=== PATIENT | female | born 1990 | race Caucasian/White ===

== ENCOUNTER → 2023-04-05 15:43 | Outpatient (REF) | payer BC, SELFPAY | LOC: PNTC 15:43 | PROVIDERS: ATTENDING PHYSICIAN Obstetrics & Gynecology | DX: Z34.82 Encounter for supervision of other normal pregnancy, second trimester (principal) | CPT/HCPCS: 76805 ==

== ENCOUNTER → 2023-05-04 16:45 | Outpatient (REF) | payer BC, SELFPAY | LOC: PNTC 16:45 | PROVIDERS: ATTENDING PHYSICIAN Obstetrics & Gynecology | DX: O28.3 Abnormal ultrasonic finding on antenatal screening of mother (principal) | CPT/HCPCS: 76816 ==

== ENCOUNTER 2023-08-16 03:03 | Inpatient (IN) | payer BC, SELFPAY ==
[2023-08-16 03:15] VITALS: BMI 30.4
[2023-08-16 03:18] VITALS: BP 136/79
[2023-08-16] MEDS: LR 1000 IV (03:33)
[2023-08-16 03:38] LABS: % Basophils 0.2 % (0-2); % Eosinophils 0.6 % (0-6); % Immature Granulocytes 0.4 % (0-0.5); % Lymphocytes 20.1 % (20.5-51.1); % Neutrophils 71.7 % (42.2-75.2); Absolute Eosinophils 0.1 10^3/uL (0-0.7); Absolute Lymphocytes 2.3 10^3/uL (1.2-3.4); Absolute Monocytes 0.8 10^3/uL (0.1-0.6); Absolute Neutrophils 8.2 10^3/uL (1.4-6.5); Hemoglobin 11.2 g/dL (12.0-16.0); Mean Corp Hgb Conc. 36.1 g/dL (33.0-37.0); Mean Corpuscular Hgb 31.9 pg (27.0-31.0); Mean Corpuscular Volume 88.3 fL (81.0-99.0); Mean Platelet Volume 10.2 fL (7.4-10.4); Nucleated Red Blood Cells % 0 %; Platelet Count 218 10^3/uL (130-400); Red Blood Cell Count 3.51 10^6/uL (4.20-5.40); Red Cell Dist. Width 12.8 % (11.5-14.5); White Blood Cell Count 11.4 10^3/uL (4.8-10.8)
[2023-08-16] MEDS: SUBLIMAZE 100 MCG EPIDURAL (04:16)
[2023-08-16] MEDS: FENTANYL/BUPIVACAINE 100 EPIDURAL (04:17)
[2023-08-16] MEDS: PITOCIN 30 UNITS/NSS 500 ML IV (07:18)
[2023-08-16] MEDS: MOTRIN 600 MG PO ×2 (13:04→18:51)
[2023-08-16] MEDS: PRENATAL PLUS 1 TABLET PO (13:07)
[2023-08-16] MEDS: TYLENOL 650 MG PO ×2 (16:27→20:51)
[2023-08-16] MEDS: SENOKOT-S 1 TABLET PO (18:33)
[2023-08-17] MEDS: TYLENOL 650 MG PO ×4 (02:21→20:16)
[2023-08-17] MEDS: MOTRIN 600 MG PO ×4 (02:22→23:18)
[2023-08-17 06:22] LABS: Hematocrit 27.8 % (37.0-47.0); Hemoglobin 9.8 g/dL (12.0-16.0)
[2023-08-17] MEDS: PRENATAL PLUS 1 TABLET PO (09:30)
[2023-08-17] MEDS: SENOKOT-S 1 TABLET PO (09:31)
[2023-08-17 11:12] LABS: Syphilis/T. pallidum Ab Reflex Negative (Negative)
--- NOTE | 2023-08-18 03:40 | DOWNTIME ---
There was a [employer] Downtime on 08/18/2023 from 0100 to 08/18/2023 at 0337. Downtime documentation of patient's care, including medication administrations, has been reconciled in the electronic record per guidelines. Refer to the
patient's paper chart under the miscellaneous tab to see printed paper medication records and downtime forms.
[2023-08-18] MEDS: TYLENOL 650 MG PO ×2 (04:30→08:08)
[2023-08-18] MEDS: MOTRIN 600 MG PO (08:09)
[2023-08-18] MEDS: FEOSOL 325 MG PO (08:09)
[2023-08-18] MEDS: PRENATAL PLUS 1 TABLET PO (08:09)
== END 2023-08-18 11:05 | disposition home or self-care (01) | DRG 807 ==
LOC: LDRP 03:03
PROVIDERS: Obstetrics & Gynecology; ADMITTING PHYSICIAN Obstetrics & Gynecology
PROC: 10E0XZZ Delivery of Products of Conception, External Approach (ICD-10-PCS; 2023-08-16)
PROC: 0HQ9XZZ Repair Perineum Skin, External Approach (ICD-10-PCS; 2023-08-16)
DX: O48.0 Post-term pregnancy (principal); Z37.0 Single live birth; Z3A.40 40 weeks gestation of pregnancy; O70.0 First degree perineal laceration during delivery
CPT/HCPCS: 85014; 85018; 85025; 86780; 86850; 86900; 86901

== ENCOUNTER 2023-11-16 08:22 | Outpatient (RCR) | payer BC, SELFPAY | END 2023-11-16 23:59 | disposition home or self-care (01) | LOC: RPT 08:22 | PROVIDERS: ATTENDING PHYSICIAN Obstetrics & Gynecology | DX: M62.89 Other specified disorders of muscle (principal); N81.84 Pelvic muscle wasting; N39.3 Stress incontinence (female) (male); Z73.6 Limitation of activities due to disability; R35.0 Frequency of micturition | CPT/HCPCS: 97163; 97530 ==

== ENCOUNTER 2023-12-13 18:53 | Outpatient (RCR) | payer BC, SELFPAY | END 2023-12-13 23:59 | disposition home or self-care (01) | LOC: RPT 18:53 | PROVIDERS: ATTENDING PHYSICIAN Obstetrics & Gynecology | DX: M62.89 Other specified disorders of muscle (principal); N81.84 Pelvic muscle wasting; N39.3 Stress incontinence (female) (male); Z73.6 Limitation of activities due to disability | CPT/HCPCS: 97110; 97112; 97140 ==

== ENCOUNTER 2024-01-19 11:10 | Outpatient (RCR) | payer BC, SELFPAY | END 2024-01-19 23:59 | disposition home or self-care (01) | LOC: RPT 11:10 | PROVIDERS: ATTENDING PHYSICIAN Obstetrics & Gynecology | DX: M62.89 Other specified disorders of muscle (principal); N81.84 Pelvic muscle wasting; N39.3 Stress incontinence (female) (male); Z73.6 Limitation of activities due to disability | CPT/HCPCS: 97014; 97110; 97112; 97140; 97530 ==

== ENCOUNTER 2024-02-01 09:04 | Outpatient (RCR) | payer BC, SELFPAY | END 2024-02-01 23:59 | disposition home or self-care (01) | LOC: RPT 09:04 | PROVIDERS: ATTENDING PHYSICIAN Obstetrics & Gynecology | DX: M62.89 Other specified disorders of muscle (principal); N81.84 Pelvic muscle wasting; N39.3 Stress incontinence (female) (male); Z73.6 Limitation of activities due to disability | CPT/HCPCS: 97112; 97140; 97530 ==

== ENCOUNTER → 2024-08-28 13:43 | Outpatient (REF) | payer BC, SELFPAY | LOC: HWRAD 13:43 | PROVIDERS: ATTENDING PHYSICIAN Nurse Practitioner Family | DX: N93.9 Abnormal uterine and vaginal bleeding, unspecified (principal) | CPT/HCPCS: 76830; 76856 ==